=== PATIENT | male | born 1990 | race Caucasian/White ===

== ENCOUNTER → 2020-05-03 | Outpatient (CLI) | payer MEDICARE, OTHER ==
[2020-05-03 20:31] LABS: BUN/CREATININE RATIO 12 (0-10)
[2020-05-03 20:43] LABS: HEMOGLOBIN 17.7 gm/dl (14.0-17.5); RED BLOOD COUNT 5.75 M/UL (4.20-5.50); WHITE BLOOD COUNT 12.1 K/UL (4.5-11.0)
[2020-05-05 22:06] LABS: AMPHETAMINES, URINE Negative ng/mL (Cutoff=1000); BARBITURATE Negative ng/mL (Cutoff=200); BENZODIAZEPINES Negative ng/mL (Cutoff=200); CANNABINOIDS Negative ng/mL (Cutoff=20); COCAINE (METABOLITE) Negative ng/mL (Cutoff=300); MEPERIDINE Negative ng/mL (Cutoff=200); METHADONE Negative ng/mL (Cutoff=300); OPIATES Negative ng/mL (Cutoff=300); PHENCYCLIDINE Negative ng/mL (Cutoff=25); PROPOXYPHENE Negative ng/mL (Cutoff=300)
== END ==
LOC: LAB 19:33
PROVIDERS: Nurse Practitioner
DX: Z51.81 Encounter for therapeutic drug level monitoring (principal); I10 Essential (primary) hypertension; E78.2 Mixed hyperlipidemia; R53.83 Other fatigue; M54.5 Low back pain; E66.9 Obesity, unspecified
CPT/HCPCS: 80053; 80061; 80307; 84443; 85025; 85027

== ENCOUNTER → 2020-09-20 | Outpatient (CLI) | payer MEDICARE ==
[2020-09-20 17:12] LABS: HEMOGLOBIN 17.4 gm/dl (14.0-17.5); RED BLOOD COUNT 5.88 M/UL (4.20-5.50); WHITE BLOOD COUNT 9.8 K/UL (4.5-11.0)
[2020-09-20 17:36] LABS: BUN/CREATININE RATIO 15 (0-10)
[2020-09-22 07:11] LABS: ESTRADIOL 32.5 pg/mL (7.6-42.6); PROLACTIN 17.4 ng/mL (4.0-15.2); RHEUMATOID ARTHRITIS FACTOR <10.0 IU/mL (0.0-13.9); VITAMIN D, 25-HYDROXY 77.4 ng/mL (30.0-100.0)
[2020-09-24 18:10] LABS: TESTOSTERONE, SERUM 638 ng/dL (264-916)
== END ==
LOC: LAB 16:32
PROVIDERS: Nurse Practitioner Family
DX: I10 Essential (primary) hypertension (principal); R53.83 Other fatigue; E66.9 Obesity, unspecified; E53.8 Deficiency of other specified B group vitamins; R86.9 Unspecified abnormal finding in specimens from male genital organs; E34.9 Endocrine disorder, unspecified; E55.9 Vitamin D deficiency, unspecified; M25.50 Pain in unspecified joint; E78.5 Hyperlipidemia, unspecified
CPT/HCPCS: 80053; 80061; 82607; 82670; 84146; 84402; 84403; 84439; 84443; 84550; 85027; 85652; 86038; 86140; 86431

== ENCOUNTER → 2021-12-06 | Outpatient (CLI) | payer MEDICARE, OTHER | LOC: EXRD 14:22 | DX: N50.819 Testicular pain, unspecified (principal) | CPT/HCPCS: 76870 ==